=== PATIENT | male | born 1945 | race Caucasian/White ===

== ENCOUNTER 2016-10-21 07:35 | Day surgery (SDC) | payer OTHER, MEDICARE ==
[~2016-10-21] VITALS: Ht 190.5 cm; Wt 90.9 kg
[~2016-10-21 07:35] MED LIST: ASPIRIN81 M2 PO; LIPITOR20 MG PO; LO-DOSE ASPIRIN81 M1 PO; MECLIZINE HCL25 MG PO; MULTIVITAMIN1 EAC2 PO; SUDAFED 12-HOU120 MG PO
[2016-10-21] MEDS ORDERED: SINGULAIR10 MG PO (08:29)
[2016-10-21] MEDS ORDERED: PROBIOTIC1 EAC1 PO (08:29)
[2016-10-21 08:30] VITALS: BP 143/81
[2016-10-21 13:45] VITALS: BP 126/58
[2016-10-21 14:52] VITALS: BP 123/68
[2016-10-21 15:20] VITALS: BP 133/73
== END 2016-10-21 15:36 | disposition home or self-care (01) ==
LOC: SDC 07:35
DX: J34.2 Deviated nasal septum (principal); J31.0 Chronic rhinitis; J32.0 Chronic maxillary sinusitis; B49 Unspecified mycosis; B96.1 Klebsiella pneumoniae [K. pneumoniae] as the cause of diseases classified elsewhere; Z79.82 Long term (current) use of aspirin
CPT/HCPCS: 87070; 87075; 87077; 87102; 87205; 88305; 88312; J0330; J0690; J1100; J2405; J3010; J3301; J7050